=== PATIENT | female | born 1935 | race Caucasian/White ===

== ENCOUNTER 2017-03-27 14:03 | Inpatient (IN) | payer OTHER ==
--- NOTE | 2017-03-27 14:15 | PDOC ---
History of Present Illness - General History Source: Patient Exam Limitations: No Limitations - History of Present Illness Initial Comments: 03/27/17 15:00 The patient is a 81-year-old female with a significant past medical history of HTN, HLD, aortic aneurysm, cardiac murmur, OA, glaucoma, who presents to the emergency department with shortness of breath today. She complains of a productive cough, subjective fever, chills, sore throat, headache, generalized myalgias, and generalized malaise that started 5 days ago. She was seen at urgent care as she feels she wasnt breathing well today, and diagnosed with strep. She was transferred to the ED from urgent care for low O2 saturation and shortness of breath that was not improving. History is provided by patient and past medical records. The patient denies chest pain and dizziness. The patient denies nausea, vomit, diarrhea and constipation. The patient denies dysuria, frequency, urgency and hematuria. Allergies: NKDA Social History: No toxic habits reported PCP: Dr. Nicholson ([facility]) <Betsy Rea - Last Filed: 03/27/17 15:00> <Lucila Zapata - Last Filed: 03/27/17 16:45> - General Chief Complaint: Shortness of Breath Stated Complaint: DIFFICULTY BREATHING Time Seen by Provider: 03/27/17 14:15 Past History <Betsy Rea - Last Filed: 03/27/17 15:00> <Lucila Zapata - Last Filed: 03/27/17 16:45> - Past Medical History Allergies/Adverse Reactions: Allergies Allergy/AdvReac Type Severity Reaction Status Date / Time No Known Allergies Allergy Verified 03/27/17 14:41 Review of Systems - Review of Systems Able to Perform ROS?: Yes Comments:: 03/27/17 15:00 GENERAL/CONSTITUTIONAL: (+) Chills. (+) Generalized malaise. HEAD, EYES, EARS, NOSE AND THROAT: No change in vision. No ear pain or discharge. (+) Sore throat. CARDIOVASCULAR: (+) Shortness of breath. No chest pain. RESPIRATORY: (+) Cough. No wheezing, or hemoptysis. GASTROINTESTINAL: No nausea, vomiting, diarrhea or constipation. GENITOURINARY: No dysuria, frequency, or change in urination. MUSCULOSKELETAL: No joint or muscle swelling or pain. No neck or back pain. SKIN: No rash NEUROLOGIC: (+) Headache. No vertigo, loss of consciousness, or change in strength/sensation. ENDOCRINE: No increased thirst. No abnormal weight change. HEMATOLOGIC/LYMPHATIC: No anemia, easy bleeding, or history of blood clots. ALLERGIC/IMMUNOLOGIC: No hives or skin allergy. <Betsy Rea - Last Filed: 03/27/17 15:00> *Physical Exam - Vital Signs Last Vital Signs Temp Pulse Resp BP Pulse Ox 101.1 F H 113 H 18 132/58 100 03/27/17 14:12 03/27/17 14:12 03/27/17 14:12 03/27/17 14:12 03/27/17 14:12 - Physical Exam Comments: 03/27/17 15:00 GENERAL: Awake, alert, and fully oriented, in no acute distress HEAD: No signs of trauma EYES: PERRLA, EOMI, sclera anicteric, conjunctiva clear ENT: Auricles normal inspection, hearing grossly normal, nares patent, oropharynx clear without exudates. Moist mucosa NECK: Normal ROM, supple, no lymphadenopathy, JVD, or masses LUNGS: (+) Tachypneic. (+) Speaking in 3-4 word sentences. (+) Wheezing at the apices. No crackles HEART: (+) Tachycardic. Regular rhythm, normal S1 and S2, no murmurs, rubs or gallops ABDOMEN: Soft, nontender, normoactive bowel sounds. No guarding, no rebound. No masses EXTREMITIES: Normal range of motion, no edema. No clubbing or cyanosis. No cords, erythema, or tenderness NEUROLOGICAL: Cranial nerves II through XII grossly intact. SKIN: Warm, Dry, normal turgor, no rashes or lesions noted. <Betsy Rea - Last Filed: 03/27/17 15:00> ED Treatment Course - LABORATORY CBC & Chemistry Diagram: 03/27/17 14:33 03/27/17 14:33 - ADDITIONAL ORDERS Additional order review: 03/27/17 14:33 RBC 5.31 H MCV 85.1 MCHC 32.7 RDW 15.5 MPV 7.3 L Neutrophils % 94.7 H Lymphocytes % 3.2 L Monocytes % 2.0 L Eosinophils % 0.0 Basophils % 0.1 - Medications Given in the ED: ED Medications Discontinued Medications Generic Name Dose Route Start Last Admin Trade Name Conrado PRN Reason Stop Dose Admin Albuterol Sulfate 1 amp 03/27/17 14:29 03/27/17 14:34 Ventolin 0.5% - NEB 03/27/17 14:30 1 amp ONCE ONE Administration <Betsy Rea - Last Filed: 03/27/17 15:00> - LABORATORY CBC & Chemistry Diagram: 03/27/17 14:33 03/27/17 14:33 <Lucila Zapata - Last Filed: 03/27/17 16:45> Medical Decision Making - Medical Decision Making 03/27/17 16:42 03/27/17 16:43 Pt presents to the ED with fever, wheezing and shortness of breath. Hypoxic to 91-92 on arrival. CXR is negative for PNA, but given initial hypoxia and persistent tachypnea, I feel that the patient likely has PNA and should be admitted for treatment. <Lucila Zapata - Last Filed: 03/27/17 16:45> *DC/Admit/Observation/Transfer - Attestations Scribe Attestion: 03/27/17 15:01 Documentation prepared by Betsy Rea, acting as medical scientific liaison for Lucila Zapata MD, /DO. <Betsy Rea - Last Filed: 03/27/17 15:00> - Discharge Dispostion Admit: Yes <Lucila Zapata - Last Filed: 03/27/17 16:45> Diagnosis at time of Disposition: Pneumonia Qualifiers: Pneumonia type: due to unspecified organism Laterality: left Lung location: unspecified part of lung Qualified Code(s): J18.9 - Pneumonia, unspecified organism - Discharge Dispostion Condition at time of disposition: Good
[2017-03-27] MEDS ORDERED: ALBUTEROL SO4 0.5 % INH SOLN 2.5 MG/0.5 ML VIAL.NEB. NEB ONE (14:29)
[2017-03-27] MEDS ORDERED: ALBUTEROL SO4 0.083% IH SOL 2.5 MG/3 ML VIAL.NEB. NEB ONE (14:34)
[2017-03-27 14:50] LABS: BASO % 0.1 % (0-2.0); HEMATOCRIT 45.2 % (32.4-45.2); HEMOGLOBIN 14.8 GM/dL (10.7-15.3); LYMPH % 3.2 % (8-40); MCH 27.8 pg (25.7-33.7); MCHC 32.7 g/dl (32.0-36.0); MEAN CELL VOLUME 85.1 fl (80-96); MEAN PLT VOLUME 7.3 fl (7.5-11.1); NEUT % 94.7 % (42.8-82.8); PLATELET COUNT 231 K/MM3 (134-434); RBC 5.31 M/mm3 (3.60-5.2); RDW 15.5 % (11.6-15.6); WHITE BLOOD COUNT 7.7 K/mm3 (4.0-10.0)
[2017-03-27] MEDS ORDERED: ACETAMINOPHEN 500 MG TABLET (FP) PO ONE (14:56)
[2017-03-27] MEDS ORDERED: ACETAMINOPHEN 325 MG TABLET (FP) ONE (15:05)
[2017-03-27 15:38] LABS: ALBUMIN 3.4 g/dl (3.4-5.0); ANION GAP 9 (8-16); BILIRUBIN,TOTAL 0.4 mg/dL (0.2-1.0); BLOOD UREA NITROGEN 12 mg/dL (7-18); CALCIUM 8.2 mg/dL (8.5-10.1); CHLORIDE 99 mmol/L (98-107); CO2 27 mmol/L (21-32); CREATININE 0.7 mg/dL (0.55-1.02); GLUCOSE,RANDOM 136 mg/dL (74-106); POTASSIUM 3.8 mmol/L (3.5-5.1); SGOT/AST 24 U/L (15-37); SGPT/ALT 30 U/L (12-78); SODIUM 135 mmol/L (136-145); TOT PROT 7.4 g/dl (6.4-8.2)
[2017-03-27 15:41] LABS: ALK PHOS 131 U/L (45-117); N-TERMINAL BNP 313.56 pg/ml (5-450)
[2017-03-27] MEDS ORDERED: CEFTRIAXONE 1 GM in DEXTROSE 5%-WATER - 50 ML IVPB ONE (16:15)
[2017-03-27] MEDS ORDERED: AZITHROMYCIN IVPB 500 MG in DEXTROSE 5%-WATER - 250 ML IVPB ONE (16:15)
--- NOTE | 2017-03-27 16:51 | HP ---
CHIEF COMPLAINT: shortness of breath, productive cough, fever, chills, sore throat, general malaise PCP: Dr. Nicholson ([facility]) HISTORY OF PRESENT ILLNESS: This is an 81 year old female with PMHx of HTN, hyperlipidemia, aortic aneurysm , cardiac murmur, osteoarthritis, glaucoma, GERD, who presented to the ED with generalized malaise, productive cough, fever, chills, sore throat, headache that began 5 days ago and shortness of breath today. She went to an urgent care center today and was sent to the ED for low O2 saturation and shortness of breath that was not improving. Per urgent care records, throat swab positive for strep, influenza negative. The patient denies any chest pain, nausea, vomiting, diarrhea, urinary symptoms. ER course was notable for: (1) Temp 101.1, pulse 113, BP 132/58, resp 18, O2 92 % on RA (reported by ED MD) (2) Na 135 (3) UA negative (leuk estrase pending) (4) Chest x-ray with questionable lingular linear atelectatic change Recent Travel: denies PAST MEDICAL HISTORY: as above PAST SURGICAL HISTORY: denies Social History: Smoking: denies Alcohol: denies Drugs: denies Family History: Allergies No Known Allergies Allergy (Verified 03/27/17 14:41) HOME MEDICATIONS: REVIEW OF SYSTEMS CONSTITUTIONAL: Fevers, chills, generalized malaise x5 days. Absent: diaphoresis , malaise, loss of appetite, weight change HEENT: Throat pain x5 days. Absent: rhinorrhea, nasal congestion, throat swelling, difficulty swallowing, mouth swelling, ear pain, eye pain, visual changes CARDIOVASCULAR: Absent: chest pain, syncope, palpitations, irregular heart rate , lightheadedness, peripheral edema RESPIRATORY: +productive cough x5 days, shortness of breath that began today. Absent: dyspnea with exertion, orthopnea, wheezing, stridor, hemoptysis GASTROINTESTINAL: Absent: abdominal pain, abdominal distension, nausea, vomiting , diarrhea, constipation, melena, hematochezia GENITOURINARY: Absent: dysuria, frequency, urgency, hesitancy, hematuria, flank pain, genital pain MUSCULOSKELETAL: Absent: myalgia, arthralgia, joint swelling, back pain, neck pain SKIN: Absent: rash, itching, pallor HEMATOLOGIC/IMMUNOLOGIC: Absent: easy bleeding, easy bruising, lymphadenopathy, frequent infections ENDOCRINE:Absent: unexplained weight gain, unexplained weight loss, heat intolerance, cold intolerance NEUROLOGIC: Headache Absent: focal weakness or paresthesias, dizziness, unsteady gait, seizure, mental status changes, bladder or bowel incontinence PSYCHIATRIC: Absent: anxiety, depression, suicidal or homicidal ideation, hallucinations. PHYSICAL EXAMINATION Vital Signs - 24 hr 03/27/17 14:12 Temperature 101.1 F H Pulse Rate 113 H Respiratory 18 Rate Blood Pressure 132/58 O2 Sat by Pulse 100 Oximetry (%) GENERAL: Awake, alert, and fully oriented, in no acute distress. Hong Konger speaking HEAD: Normal with no signs of trauma. EYES: Pupils equal, round and reactive to light, extraocular movements intact, sclera anicteric, conjunctiva clear. No lid lag. EARS, NOSE, THROAT: + throat erythema. Ears normal, nares patent, oropharynx clear without exudates. Moist mucous membranes. NECK: Normal range of motion, supple without lymphadenopathy, JVD, or masses. LUNGS: Decreased breath sounds bilaterally. Mild end expiratory wheezing. Breath sounds equal. No crackles. No accessory muscle use. HEART: Regular rate and rhythm, normal S1 and S2 without murmur, rub or gallop. ABDOMEN: Soft, nontender, not distended, normoactive bowel sounds, no guarding, no rebound, no masses. No hepatomegaly or splenomegaly. MUSCULOSKELETAL: Normal range of motion at all joints. No bony deformities or tenderness. No CVA tenderness. UPPER EXTREMITIES: 2+ pulses, warm, well-perfused. No cyanosis. No clubbing. No peripheral edema. LOWER EXTREMITIES: 2+ pulses, warm, well-perfused. No calf tenderness. No peripheral edema. NEUROLOGICAL: Cranial nerves II-XII intact. Normal speech. Normal gait. PSYCHIATRIC: Cooperative. Good eye contact. Appropriate mood and affect. SKIN: Warm, dry, normal turgor, no rashes or lesions noted, normal capillary refill. Laboratory Results - last 24 hr 03/27/17 03/27/17 03/27/17 14:33 14:33 14:45 WBC 7.7 RBC 5.31 H Hgb 14.8 Hct 45.2 MCV 85.1 MCH 27.8 MCHC 32.7 RDW 15.5 Plt Count 231 MPV 7.3 L Neutrophils % 94.7 H Lymphocytes % 3.2 L Monocytes % 2.0 L Eosinophils % 0.0 Basophils % 0.1 Sodium 135 L Potassium 3.8 Chloride 99 Carbon Dioxide 27 Anion Gap 9 BUN 12 Creatinine 0.7 Creat Clearance w eGFR > 60 Random Glucose 136 H Lactic Acid 1.6 Calcium 8.2 L Total Bilirubin 0.4 AST 24 ALT 30 Alkaline Phosphatase 131 H Creatine Kinase 65 Troponin I < 0.02 B-Natriuretic Peptide 313.56 Total Protein 7.4 Albumin 3.4 Assessment: This is an 81 year old female with PMHx of HTN, hyperlipidemia, aortic aneurysm, cardiac murmur, osteoarthritis, glaucoma, GERD, who presented to the ED with generalized malaise, productive cough, fever, chills, sore throat , headache that began 5 days ago and shortness of breath today. Plan: 1) Sepsis 2/2 possible community acquired pneumonia vs. bronchitis vs. strep throat vs. influenza - Continue Azithromycin - Continue Ceftriaxone - Monitor fever - F/u cultures - Influenza A&B negative 2) Wheezing with hypoxia - Likely 2/2 infection - Will give short course of steroids - Duonebs prn - O2 via NC prn 2) HTN - Continue Diltiazem 3) Hyperlipidemia - Continue statin 4) Osteoarthritis - Continue diclofenac 5) GERD - Continue omeprazole 6) F/E/N: - Regular diet - Monitor electrolytes 7) Prophylaxis: - Heparin 5,000u sq bid - OOB ambulating 8) Dispo: - Requires continued inpatient care CODE STATUS: FULL CODE Visit type - Emergency Visit Emergency Visit: Yes Care time: The patient presented to the Emergency Department on the above date and was hospitalized for further evaluation of their emergent condition. - New Patient This patient is new to me today: Yes Date on this admission: 03/27/17 - Critical Care Critical Care patient: No
[2017-03-27 17:01] LABS: URINE APPEARANCE CLEAR; URINE BILIRUBIN NEGATIVE (NEGATIVE); URINE BLOOD 1+ (NEGATIVE); URINE COLOR YELLOW; URINE GLUCOSE (UA) NEGATIVE (NEGATIVE); URINE KETONE NEGATIVE (NEGATIVE); URINE LEUK ESTERASE NEGATIVE (NEGATIVE); URINE NITRITE NEGATIVE (NEGATIVE); URINE UROBILINOGEN NEGATIVE mg/dL (0.2-1.0)
[2017-03-27 17:04] LABS: EPI CELLS RARE /HPF (FEW); URINE HYALINE CAST 1 /lpf; URINE MUCUS RARE; URINE PROTEIN 1+ (NEGATIVE)
[2017-03-27] MEDS ORDERED: CEFTRIAXONE 1 GM/50 ML BAG ONE (17:14)
[2017-03-27] MEDS ORDERED: AZITHROMYCIN IVPB 250 ML IVPB ONE (17:14)
[2017-03-27] MEDS ORDERED: ALBUTEROL SO4 2.5/IPRATROPIUM 0.5 INH SOL 3 ML VIAL.NEB. NEB PRN (17:45)
[2017-03-27] MEDS: methylPREDNISolone NA SUCC 40 MG/1 ML VIAL IVPUSH SCH (17:48)
[2017-03-27] MEDS ORDERED: methylPREDNISolone NA SUCC 40 MG/1 ML VIAL ONE (17:51)
[2017-03-27] MEDS ORDERED: LIDOCAINE 4% TP SCH (22:00)
[2017-03-27] MEDS ORDERED: HEPARIN NA (PORCINE) 5,000 UNITS/ML 1ML VIAL ONE (23:28)
[2017-03-27] MEDS: HEPARIN NA (PORCINE) 5,000 UNITS/ML 1ML VIAL SQ SCH (23:36)
[2017-03-27] MEDS: DICLOFENAC SODIUM 25 MG TABLET.DR PO SCH (23:37)
[2017-03-27] MEDS: GABAPENTIN 300 MG CAPSULE (FP) PO SCH (23:37)
[2017-03-27] MEDS: NORTRIPTYLINE HCL 10 MG CAPSULE PO SCH (23:37)
[2017-03-28] MEDS: LATANOPROST 0.005% OPHTH SOLN 2.5ML BOTTLE OU SCH ×2 (00:39→22:04)
[2017-03-28 00:58] VITALS: BMI 30.2
[2017-03-28] MEDS: methylPREDNISolone NA SUCC 40 MG/1 ML VIAL IVPUSH SCH ×3 (02:44→17:44)
[2017-03-28] MEDS ORDERED: PT OWN MED DRAWER 7, Y5N ONE ×2 (05:22→09:29)
[2017-03-28] MEDS: GABAPENTIN 300 MG CAPSULE (FP) PO SCH ×3 (05:33→21:12)
[2017-03-28 09:17] LABS: HEMATOCRIT 46.4 % (32.4-45.2); MCH 27.9 pg (25.7-33.7); MCHC 32.4 g/dl (32.0-36.0); MEAN PLT VOLUME 7.7 fl (7.5-11.1); PLATELET COUNT 265 K/MM3 (134-434); RBC 5.39 M/mm3 (3.60-5.2); RDW 15.3 % (11.6-15.6); WHITE BLOOD COUNT 9.6 K/mm3 (4.0-10.0)
[2017-03-28] MEDS: ATORVASTATIN CA 10 MG TABLET (FP) PO SCH (09:31)
[2017-03-28] MEDS: PANTOPRAZOLE 20 MG TABLET (FP) PO SCH (09:31)
[2017-03-28] MEDS: HEPARIN NA (PORCINE) 5,000 UNITS/ML 1ML VIAL SQ SCH ×2 (09:31→22:03)
[2017-03-28] MEDS: DICLOFENAC SODIUM 25 MG TABLET.DR PO SCH ×2 (09:32→23:02)
[2017-03-28 09:47] LABS: ALBUMIN 3.3 g/dl (3.4-5.0); ANION GAP 7 (8-16); BLOOD UREA NITROGEN 16 mg/dL (7-18); CALCIUM 8.9 mg/dL (8.5-10.1); CHLORIDE 97 mmol/L (98-107); CO2 32 mmol/L (21-32); CREATININE 0.7 mg/dL (0.55-1.02); GLUCOSE,RANDOM 187 mg/dL (74-106); MAGNESIUM 2.5 mg/dL (1.8-2.4); PHOSPHOROUS 2.9 mg/dL (2.5-4.9); SGOT/AST 24 U/L (15-37); SGPT/ALT 30 U/L (12-78); SODIUM 136 mmol/L (136-145)
[2017-03-28 09:48] LABS: ALK PHOS 117 U/L (45-117); BILIRUBIN,TOTAL 0.4 mg/dL (0.2-1.0); TOT PROT 7.4 g/dl (6.4-8.2)
[2017-03-28] MEDS ORDERED: CEFTRIAXONE 1 G/50 ML PREMIX 50 ML IVPB SCH (17:00)
[2017-03-28] MEDS ORDERED: AZITHROMYCIN IVPB 250 MG in DEXTROSE 5%-WATER - 250 ML IVPB SCH (17:00)
--- NOTE | 2017-03-28 17:12 | PN ---
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 Patient states she is feeling better today, denies any chest pain or shortness of breath Current Medications Generic Name Dose Route Start Last Admin Trade Name Freashly PRN Reason Stop Dose Admin Albuterol/Ipratropium 1 amp 03/27/17 17:45 03/27/17 17:48 Duoneb - NEB 1 amp Q6H PRN Administration SHORTNESS OF BREATH Atorvastatin Calcium 10 mg 03/28/17 10:00 03/28/17 09:31 Lipitor - PO 10 mg DAILY MOLLY Administration Diclofenac Sodium 50 mg 03/27/17 22:00 03/28/17 09:32 Voltaren - PO 50 mg BID MOLLY Administration Diltiazem HCl 180 mg 03/28/17 10:00 03/28/17 09:31 Cardizem Cd - PO 180 mg DAILY MOLLY Administration Gabapentin 600 mg 03/27/17 22:00 03/28/17 14:58 Neurontin - PO 600 mg TID MOLLY Administration Heparin Sodium (Porcine) 5,000 unit 03/27/17 22:00 03/28/17 09:31 Heparin - SQ 5,000 unit BID MOLLY Administration CEFTRIAXONE 1 G/50 ML PREMIX 50 mls @ 100 mls/hr 03/28/17 17:00 Ceftriaxone 1 Gm-D5w Bag IVPB DAILY@1700 MOLLY Azithromycin 250 mg/ Dextrose 250 mls @ 250 mls/hr 03/28/17 17:00 IVPB DAILY@1700 MOLLY Latanoprost 1 drop 03/27/17 22:00 03/28/17 00:39 Xalatan 0.005% Eye Drops - OU Not Given HS MOLLY Methylprednisolone Sodium Succinate 40 mg 03/27/17 18:00 03/28/17 09:39 Solu-Medrol - IVPUSH 40 mg Q8H-IV MOLLY Administration Non-Formulary Medication 1 applic 03/27/17 22:00 Lidocaine 4% Cream - TP BID MOLLY Nortriptyline HCl 10 mg 03/27/17 22:00 03/27/17 23:37 Pamelor - PO 10 mg HS MOLLY Administration Pantoprazole Sodium 20 mg 03/28/17 10:00 03/28/17 09:31 Protonix - PO 20 mg DAILY MOLLY Administration Objective: Vital Signs Period Temp Pulse Resp BP Sys/Arana Pulse Ox Last 24 Hr 97.7 F-99.0 F 80-100 16-20 112-139/48-80 95-98 Physical Exam: General: Indonesian speaking, NAD, A&Ox3 Lungs: End expiratory wheezing bilaterally, improving Heart: RRR, S1S2 Abd: Soft, non-tender Visit type - Emergency Visit Emergency Visit: Yes ED Registration Date: 03/27/17 Care time: The patient presented to the Emergency Department on the above date and was hospitalized for further evaluation of their emergent condition. - New Patient This patient is new to me today: No - Critical Care Critical Care patient: No
[2017-03-28] MEDS: NORTRIPTYLINE HCL 10 MG CAPSULE PO SCH (23:02)
[2017-03-29] MEDS: methylPREDNISolone NA SUCC 40 MG/1 ML VIAL IVPUSH SCH ×2 (02:32→10:48)
[2017-03-29] MEDS ORDERED: PT OWN MED DRAWER 7, Y5N ONE ×2 (02:52→10:34)
[2017-03-29] MEDS: GABAPENTIN 300 MG CAPSULE (FP) PO SCH (05:26)
[2017-03-29] MEDS: PANTOPRAZOLE 20 MG TABLET (FP) PO SCH (10:47)
[2017-03-29] MEDS: ATORVASTATIN CA 10 MG TABLET (FP) PO SCH (10:48)
[2017-03-29] MEDS: HEPARIN NA (PORCINE) 5,000 UNITS/ML 1ML VIAL SQ SCH (10:48)
[2017-03-29] MEDS: DICLOFENAC SODIUM 25 MG TABLET.DR PO SCH (10:49)
--- NOTE | 2017-03-29 11:59 | DS ---
Physical Examination Vital Signs: Vital Signs Temperature 97.9 F 03/29/17 06:00 Pulse Rate 78 03/29/17 06:00 Respiratory Rate 20 03/29/17 06:00 Blood Pressure 146/76 03/29/17 06:00 O2 Sat by Pulse Oximetry (%) 95 03/28/17 20:16 Findings/Remarks: Lungs: CTA bilaterally Labs: CBC, BMP 03/28/17 08:11 03/28/17 08:11 Discharge Summary Reason For Visit: PNEUMONIA Current Active Problems Pneumonia (Acute) Condition: Improved - Instructions Diet, Activity, Other Instructions: Please return to the ED with new, persistent, or worsening symptoms. Please follow-up with providers as indicated. Referrals: Ernesto Dyer MD [Staff Physician] - (Please follow-up with your primary care provider within 3-5 days for reevaluation after resolution of your symptoms. ) Disposition: HOME - Home Medications Comprehensive Discharge Medication List: Ambulatory Orders Diclofenac Sodium 50 mg PO BID 03/27/17 Diltiazem Cd [Cardizem Cd -] 180 mg PO DAILY 03/27/17 Gabapentin [Neurontin] 600 mg PO TID 03/27/17 Hydrocortisone 0.5% Cream [Hytone 0.5% Cream -] 1 applic TP DAILY 03/27/17 Nortriptyline HCl [Pamelor -] 25 mg PO HS 03/27/17 Omeprazole 20 mg PO DAILY 03/27/17 Pravastatin Sodium [Pravachol -] 40 mg PO DAILY 03/27/17 Azithromycin 250 mg PO DAILY #3 tablet 03/29/17 Cefuroxime Axetil [Ceftin -] 500 mg PO Q12H #16 tablet 03/29/17 Prednisone 10 mg PO ASDIR #26 tablet 03/29/17
[2017-03-29 12:35] VITALS: BP 118/63; PULSE 104; TEMP 97.8
--- NOTE | 2017-03-29 13:23 | EKG ---
Test Reason : Blood Pressure : / mmHG Vent. Rate : 114 BPM Atrial Rate : 114 BPM P-R Int : 148 ms QRS Dur : 084 ms QT Int : 336 ms P-R-T Axes : 050 -45 067 degrees QTc Int : 463 ms SINUS TACHYCARDIA POSSIBLE LEFT ATRIAL ENLARGEMENT LEFT AXIS DEVIATION POSSIBLE ANTERIOR INFARCT , AGE UNDETERMINED ABNORMAL ECG NO PREVIOUS ECGS AVAILABLE Confirmed by NICOLAS LONG MD ([id number]) on 03/29/2017 1:22:28 PM Referred By: Confirmed By:NICOLAS LONG MD
[2017-03-29] MEDS ORDERED: methylPREDNISolone NA SUCC 40 MG/1 ML VIAL IVPUSH SCH (22:00)
== END 2017-03-29 12:39 | disposition home or self-care (01) | DRG 871 ==
LOC: JER 14:03 → JERBED 16:54 → J6S 03-28 00:16
PROVIDERS: ADMIT Internal Medicine; ATTEND Registered Nurse
DX: A41.9 Sepsis, unspecified organism (principal); J18.9 Pneumonia, unspecified organism; I10 Essential (primary) hypertension; E78.5 Hyperlipidemia, unspecified; K21.9 Gastro-esophageal reflux disease without esophagitis; M19.90 Unspecified osteoarthritis, unspecified site; H40.9 Unspecified glaucoma
CPT/HCPCS: 36415; 71045-TC; 80053; 81003; 81015; 82550; 83605; 83735; 83880; 84100; 84484; 85025; 85027; 87040; 87070; 87086; 87205; 87804; 87899; 93005; 93010; 99284-25; J1644

== ENCOUNTER 2021-05-07 04:26 | Day surgery (SDC) | payer OTHER ==
[2021-05-06 09:59] VITALS: BMI 31.2
[2021-05-07] MEDS ORDERED: LIDOCAINE HCL 1% PRESERVATIVE FREE - 30ML VIAL IJ ONE (13:05)
[2021-05-07 14:49] VITALS: BP 139/61; PULSE 70; TEMP 97.8
== END 2021-05-07 14:55 | disposition home or self-care (01) ==
LOC: JASU-SURG 04:26
PROVIDERS: ATTEND Pain Medicine Pain Medicine
PROC: 4B01XVZ Measurement of Peripheral Nervous Stimulator, External Approach (ICD-10-PCS; 2021-05-07)
PROC: 01HY3MZ Insertion of Neurostimulator Lead into Peripheral Nerve, Percutaneous Approach (ICD-10-PCS; principal; 2021-05-07 13:00)
DX: B02.29 Other postherpetic nervous system involvement (principal); G89.4 Chronic pain syndrome
CPT/HCPCS: 64555; C1897; 76000-TC-FY